=== PATIENT | female | born 1995 | race Caucasian/White ===

== ENCOUNTER 2017-01-14 17:23 | Emergency (ER) | payer OTHER ==
[2017-01-14 17:32] VITALS: O2SAT 97
--- NOTE | 2017-01-14 17:47 | EDPHY ---
H & P Time Seen by Provider: 01/14/17 17:46 HPI/ROS: CHIEF COMPLAINT: Neck pain HISTORY OF PRESENT ILLNESS: The patient is a healthy 21 y/o female complaining of neck swelling onset an hour ago. Today, while at work she noticed that the front of her neck was tight and warm to the touch. She drank some water but did not experience any improvement. The sx resolved and then recurred. She describes it as "pulsating" and like "her heartbeat is in her throat". She denies sore throat, difficulty breathing, cough, fever or other associated symptoms. She denies any precipitating factors or prior similar sx. REVIEW OF SYSTEMS: Constitutional: No fever, no chills Eyes: No visual changes ENT: No sore throat Respiratory: No cough, no shortness of breath Cardiac: No chest pain Gastrointestinal: No nausea, no vomiting, no abdominal pain Genitourinary: no dysuria Musculoskeletal: No leg pain or swelling Skin: No rash Neurological: No headache Psychiatric: Feels anxious Past Medical/Surgical History: Denies Social History: Mother at bedside, works at a [employer], works at the [employer] Smoking Status: Current every day smoker Physical Exam: General Appearance: Alert, no distress Eyes: Pupils equal and round, no conjunctival pallor or injection ENT, Mouth: Mucous membranes moist Neck: Normal inspection, no tenderness or masses, no swelling or tenderness over the thyroid, no stridor Respiratory: Lungs are clear to auscultation Cardiovascular: Regular rate and rhythm Neurological: A&O, nonfocal, normal gait Skin: Warm and dry, no rash Extremities: Normal inspection Psychiatric: anxious Constitutional: Initial Vital Signs Temperature (C) 37.1 C 01/14/17 17:30 Heart Rate 119 H 01/14/17 17:30 Respiratory Rate 16 01/14/17 17:30 Blood Pressure 157/116 H 01/14/17 17:30 O2 Sat (%) 97 01/14/17 17:30 O2 Delivery Mode Room Air Allergies/Adverse Reactions: No Known Allergies Allergy (Verified 11/03/15 17:02) Home Medications: Medication Instructions Recorded Control Pills. 11/03/15 Medical Decision Making - Diagnostics Imaging Results: Study: X-ray of the neck Indication: Acute neck tightness Results: X-ray of the neck was obtained. The results of the study are: normal The study was read by the radiologist, Dr. Lopez. I viewed the images myself on the PACS system. Imaging: Discussed imaging studies w/ tobacco scrap sifter Radiologist, I viewed and interpreted images myself ED Course/Re-evaluation: The patient is a healthy 21 y/o female complaining of neck swelling, pain, and tightness. Symptoms are worse with talking. Physical exam is normal. Neck X- ray to investigate symptoms. 1848: I viewed the patient's X-ray on the PACS system. X-ray was normal. I reassessed patient and discussed the results of her work-up with her. Repeat physical exam is normal. We agreed she is ready to be discharged. She continues to feel swelling in her throat, without any objective swelling present. I decided to give her a 1 time dose of Decadron. She feels quite anxious, so a prepack of Ativan was given. Follow-up instructions and return precautions given. Differential Diagnosis: Differential diagnosis includes does not limited to allergic reaction, adenopathy, cellulitis, pharyngitis, epiglottitis, thyroiditis. - Data Points Medications Given: Discontinued Medications Dexamethasone (Decadron) 4 mg PO EDNOW ONE Stop: 01/14/17 18:52 Last Admin: 01/14/17 18:58 Dose: 4 mg Lorazepam (Ativan 1 Mg Prepack#4) 1 btl TAKEHOME EDNOW ONE Stop: 01/14/17 18:52 Last Admin: 01/14/17 18:58 Dose: 1 btl Departure - Departure Disposition: Home, Routine, Self-Care Clinical Impression: Neck tightness Condition: Good Instructions: Lorazepam (By mouth), Neck Pain (ED) Additional Instructions: 1. Take 1/2 Ativan every 6 hours as needed for anxiety. 2. Follow up with a primary care provider in 2-3 days for unimproved symptoms. 3. Return to the ED for worsening tightness, difficulty breathing, fever, headache, or other concerns. Referrals: Dae Li MD [[facility] [place] Primary Care Provider] - As per Instructions Report Scribed for: Lizette Tierney Report Scribed by: Celeste Brooks Date of Report: 01/14/17 Time of Report: 17:47 Physician Review and Approval Statement: 01/14/17 17:47 Portions of this note were transcribed by a certified medical technician. I personally performed a history, physical exam, medical decision making, and confirmed accuracy of information the transcribed note.
--- NOTE | 2017-01-14 17:47 | EDPHY ---
H & P Time Seen by Provider: 01/14/17 17:46 HPI/ROS: CHIEF COMPLAINT: Neck pain HISTORY OF PRESENT ILLNESS: The patient is a healthy 21 y/o female complaining of neck swelling onset an hour ago. Today, while at work she noticed that the front of her neck was tight and warm to the touch. She drank some water but did not experience any improvement. The sx resolved and then recurred. She describes it as "pulsating" and like "her heartbeat is in her throat". She denies sore throat, difficulty breathing, cough, fever or other associated symptoms. She denies any precipitating factors or prior similar sx. REVIEW OF SYSTEMS: Constitutional: No fever, no chills Eyes: No visual changes ENT: No sore throat Respiratory: No cough, no shortness of breath Cardiac: No chest pain Gastrointestinal: No nausea, no vomiting, no abdominal pain Genitourinary: no dysuria Musculoskeletal: No leg pain or swelling Skin: No rash Neurological: No headache Psychiatric: Feels anxious Past Medical/Surgical History: Denies Social History: Mother at bedside, works at a [employer], works at the [employer] Smoking Status: Current every day smoker Physical Exam: General Appearance: Alert, no distress Eyes: Pupils equal and round, no conjunctival pallor or injection ENT, Mouth: Mucous membranes moist Neck: Normal inspection, no tenderness or masses, no swelling or tenderness over the thyroid, no stridor Respiratory: Lungs are clear to auscultation Cardiovascular: Regular rate and rhythm Neurological: A&O, nonfocal, normal gait Skin: Warm and dry, no rash Extremities: Normal inspection Psychiatric: anxious Constitutional: Initial Vital Signs Temperature (C) 37.1 C 01/14/17 17:30 Heart Rate 119 H 01/14/17 17:30 Respiratory Rate 16 01/14/17 17:30 Blood Pressure 157/116 H 01/14/17 17:30 O2 Sat (%) 97 01/14/17 17:30 O2 Delivery Mode Room Air Allergies/Adverse Reactions: No Known Allergies Allergy (Verified 11/03/15 17:02) Home Medications: Medication Instructions Recorded Control Pills. 11/03/15 Medical Decision Making - Diagnostics Imaging Results: Study: X-ray of the neck Indication: Acute neck tightness Results: X-ray of the neck was obtained. The results of the study are: normal The study was read by the radiologist, Dr. Lopez. I viewed the images myself on the PACS system. Imaging: Discussed imaging studies w/ fitness coordinator Radiologist, I viewed and interpreted images myself ED Course/Re-evaluation: The patient is a healthy 21 y/o female complaining of neck swelling, pain, and tightness. Symptoms are worse with talking. Physical exam is normal. Neck X- ray to investigate symptoms. 1848: I viewed the patient's X-ray on the PACS system. X-ray was normal. I reassessed patient and discussed the results of her work-up with her. Repeat physical exam is normal. We agreed she is ready to be discharged. She continues to feel swelling in her throat, without any objective swelling present. I decided to give her a 1 time dose of Decadron. She feels quite anxious, so a prepack of Ativan was given. Follow-up instructions and return precautions given. Differential Diagnosis: Differential diagnosis includes does not limited to allergic reaction, adenopathy, cellulitis, pharyngitis, epiglottitis, thyroiditis. - Data Points Medications Given: Discontinued Medications Dexamethasone (Decadron) 4 mg PO EDNOW ONE Stop: 01/14/17 18:52 Last Admin: 01/14/17 18:58 Dose: 4 mg Lorazepam (Ativan 1 Mg Prepack#4) 1 btl TAKEHOME EDNOW ONE Stop: 01/14/17 18:52 Last Admin: 01/14/17 18:58 Dose: 1 btl Departure - Departure Disposition: Home, Routine, Self-Care Clinical Impression: Neck tightness Condition: Good Instructions: Lorazepam (By mouth), Neck Pain (ED) Additional Instructions: 1. Take 1/2 Ativan every 6 hours as needed for anxiety. 2. Follow up with a primary care provider in 2-3 days for unimproved symptoms. 3. Return to the ED for worsening tightness, difficulty breathing, fever, headache, or other concerns. Referrals: Dae Li MD [[facility] [place] Primary Care Provider] - As per Instructions Report Scribed for: Lizette Tierney Report Scribed by: Celeste Brooks Date of Report: 01/14/17 Time of Report: 17:47 Physician Review and Approval Statement: 01/14/17 17:47 Portions of this note were transcribed by a medical transcription. I personally performed a history, physical exam, medical decision making, and confirmed accuracy of information the transcribed note.
--- NOTE | 2017-01-14 17:47 | EDPHY ---
H & P Time Seen by Provider: 01/14/17 17:46 HPI/ROS: CHIEF COMPLAINT: Neck pain HISTORY OF PRESENT ILLNESS: The patient is a healthy 21 y/o female complaining of neck swelling onset an hour ago. Today, while at work she noticed that the front of her neck was tight and warm to the touch. She drank some water but did not experience any improvement. The sx resolved and then recurred. She describes it as "pulsating" and like "her heartbeat is in her throat". She denies sore throat, difficulty breathing, cough, fever or other associated symptoms. She denies any precipitating factors or prior similar sx. REVIEW OF SYSTEMS: Constitutional: No fever, no chills Eyes: No visual changes ENT: No sore throat Respiratory: No cough, no shortness of breath Cardiac: No chest pain Gastrointestinal: No nausea, no vomiting, no abdominal pain Genitourinary: no dysuria Musculoskeletal: No leg pain or swelling Skin: No rash Neurological: No headache Psychiatric: Feels anxious Past Medical/Surgical History: Denies Social History: Mother at bedside, works at a [employer], works at the [employer] Smoking Status: Current every day smoker Physical Exam: General Appearance: Alert, no distress Eyes: Pupils equal and round, no conjunctival pallor or injection ENT, Mouth: Mucous membranes moist Neck: Normal inspection, no tenderness or masses, no swelling or tenderness over the thyroid, no stridor Respiratory: Lungs are clear to auscultation Cardiovascular: Regular rate and rhythm Neurological: A&O, nonfocal, normal gait Skin: Warm and dry, no rash Extremities: Normal inspection Psychiatric: anxious Constitutional: Initial Vital Signs Temperature (C) 37.1 C 01/14/17 17:30 Heart Rate 119 H 01/14/17 17:30 Respiratory Rate 16 01/14/17 17:30 Blood Pressure 157/116 H 01/14/17 17:30 O2 Sat (%) 97 01/14/17 17:30 O2 Delivery Mode Room Air Allergies/Adverse Reactions: No Known Allergies Allergy (Verified 11/03/15 17:02) Home Medications: Medication Instructions Recorded Control Pills. 11/03/15 Medical Decision Making - Diagnostics Imaging Results: Study: X-ray of the neck Indication: Acute neck tightness Results: X-ray of the neck was obtained. The results of the study are: normal The study was read by the radiologist, Dr. Lopez. I viewed the images myself on the PACS system. Imaging: Discussed imaging studies w/ scallop binder Radiologist, I viewed and interpreted images myself ED Course/Re-evaluation: The patient is a healthy 21 y/o female complaining of neck swelling, pain, and tightness. Symptoms are worse with talking. Physical exam is normal. Neck X- ray to investigate symptoms. 1848: I viewed the patient's X-ray on the PACS system. X-ray was normal. I reassessed patient and discussed the results of her work-up with her. Repeat physical exam is normal. We agreed she is ready to be discharged. She continues to feel swelling in her throat, without any objective swelling present. I decided to give her a 1 time dose of Decadron. She feels quite anxious, so a prepack of Ativan was given. Follow-up instructions and return precautions given. Differential Diagnosis: Differential diagnosis includes does not limited to allergic reaction, adenopathy, cellulitis, pharyngitis, epiglottitis, thyroiditis. - Data Points Medications Given: Discontinued Medications Dexamethasone (Decadron) 4 mg PO EDNOW ONE Stop: 01/14/17 18:52 Last Admin: 01/14/17 18:58 Dose: 4 mg Lorazepam (Ativan 1 Mg Prepack#4) 1 btl TAKEHOME EDNOW ONE Stop: 01/14/17 18:52 Last Admin: 01/14/17 18:58 Dose: 1 btl Departure - Departure Disposition: Home, Routine, Self-Care Clinical Impression: Neck tightness Condition: Good Instructions: Lorazepam (By mouth), Neck Pain (ED) Additional Instructions: 1. Take 1/2 Ativan every 6 hours as needed for anxiety. 2. Follow up with a primary care provider in 2-3 days for unimproved symptoms. 3. Return to the ED for worsening tightness, difficulty breathing, fever, headache, or other concerns. Referrals: Dae Li MD [[facility] [place]] - As per Instructions Report Scribed for: Lizette Tierney Report Scribed by: Celeste Brooks Date of Report: 01/14/17 Time of Report: 17:47 Physician Review and Approval Statement: 01/14/17 17:47 Portions of this note were transcribed by a medical social worker. I personally performed a history, physical exam, medical decision making, and confirmed accuracy of information the transcribed note.
[2017-01-14] MEDS ORDERED: LORAZEPAM 1 MG PREPACK#4 BTL TAKEHOME ONE (18:51)
[2017-01-14] MEDS ORDERED: DEXAMETHASONE 4 MG TAB PO ONE (18:51)
[2017-01-14 19:07] VITALS: BP 127/80; PULSE 93; RESP 18; TEMP 98.4
== END 2017-01-14 19:05 | disposition home or self-care (01) ==
DX: M53.82 Other specified dorsopathies, cervical region (principal); F17.200 Nicotine dependence, unspecified, uncomplicated